=== PATIENT | female | born 1960 | race Caucasian/White ===

== ENCOUNTER 2021-05-24 23:00 | Emergency (ER) | payer MEDICAID ==
[~2021-05-24] VITALS: Ht 170.2 cm; Wt 59.0 kg
[2021-05-24 23:03] VITALS: BP 103/72
== END 2021-05-25 00:38 | disposition left against medical advice (07) ==
LOC: ER 23:00
DX: R55 Syncope and collapse (principal); I10 Essential (primary) hypertension; I48.91 Unspecified atrial fibrillation; R42 Dizziness and giddiness
CPT/HCPCS: 93005; 99283